=== PATIENT | male | born 1990 | race Caucasian/White ===

== ENCOUNTER 2018-12-26 10:06 | Emergency (ER) | payer MEDICAID ==
[2018-12-26] MEDS: Lidocaine 1% 10 ML MDV INJECT ONE (11:30)
--- NOTE | 2018-12-26 13:37 | EDM.PDOC ---
ED HPI GENERAL MEDICAL PROBLEM - General Chief Complaint: Laceration Stated Complaint: injury to arm, fell through window at home Time Seen by Provider: 12/26/18 10:45 Source of Information: Reports: Patient, Family, RN History Limitations: Reports: No Limitations - History of Present Illness INITIAL COMMENTS - FREE TEXT/NARRATIVE: 28 yo male presents to ER with laceration to right arm, shoe got caught at home and he fell through the trailer house window and has a couple lacerations. 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 Treatments TRAINING ANALYST: Reports: Dressing(s) Other Treatments TRAINING ANALYST: shirt tourniquet - Related Data Allergies Allergy/AdvReac Type Severity Reaction Status Date / Time No Known Allergies Allergy Verified 12/26/18 10:59 Home Meds: Home Meds Albuterol/Ipratropium [DuoNeb 3.0-0.5 MG/3 ML] 3 mg IH BEDTIME 12/26/18 [History ] Budesonide/Formoterol Fumarate [Symbicort 160-4.5 Mcg Inhaler] 1 prepack IH BID 12/26/18 [History] Cholecalciferol (Vitamin D3) [Vitamin D] 5,000 unit PO BTNUNITS 12/26/18 [ History] Dextroamphetamine/Amphetamine [Adderall 20 mg Tablet] 20 mg ACDINNER 12/26/18 [ History] Gabapentin [Neurontin] 400 mg PO TID 12/26/18 [History] Ibuprofen 800 mg PO PRN 12/26/18 [History] [place] Carbonate 300 mg PO BEDTIME 12/26/18 [History] Mirtazapine [Remeron] 30 mg PO BEDTIME 12/26/18 [History] Polyethylene Glycol 3350 [MiraLAX] 17 gm DAILY 12/26/18 [History] cloNIDine [Catapres] 0.1 mg PO BEDTIME 12/26/18 [History] ED ROS GENERAL - Review of Systems Review Of Systems: See Below Constitutional: Reports: No Symptoms HEENT: Reports: No Symptoms Respiratory: Reports: No Symptoms Cardiovascular: Reports: No Symptoms Skin: Reports: Other (lacerations to forearm) ED EXAM, GENERAL - Physical Exam Exam: See Below Exam Limited By: No Limitations General Appearance: Alert, No Apparent Distress Nose: Normal Inspection Throat/Mouth: Normal Voice, No Airway Compromise Head: Atraumatic, Normocephalic Neck: Normal Inspection, Non-Tender, Full Range of Motion Respiratory/Chest: No Respiratory Distress, Lungs Clear Cardiovascular: Normal Peripheral Pulses, No Edema Extremities: Normal Inspection, Normal Range of Motion, Normal Capillary Refill Neurological: Alert, Oriented, Normal Cognition Skin Exam: Warm, Dry, Wound/Incision (2 lacerations to right forearm on posterior side of arm. No foreign object noted and moving fingers and hand without difficulty.) ED GENERAL MEDICAL PROCEDURES - Laceration/Wound Repair Right Upper Anterior Arm Lac/wound length in cm: 2.5 (2 lacerations) Appearance: Superficial, Linear Distal NVT: Neuro & Vascular Intact, No Tendon Injury Anesthetic Type: Local Local Anesthesia - Lidocaine (Xylocaine): 1% Plain Local Anesthetic Volume: 4cc Skin Prep: Chlorhexidine (Hibiciens), Saline, Sterile Drape Exploration/Debridement/Repair: Wound Explored Closed with: Sutures Suture Size: 4-0 Suture Type: Nylon, Interrupted, Simple Sterile Dressing Applied: Nurse Tetanus Status Addressed: Yes Complications: No Course - Vital Signs Last Recorded V/S: Last Vital Signs Temp 97.7 F 12/26/18 10:30 Pulse Resp BP 144/93 H 12/26/18 10:30 Pulse Ox Departure - Departure Time of Disposition: 12:00 Disposition: Home, Self-Care 01 Preliminary Cause of *Q: Sepsis & Multi System Organ Failure Clinical Impression: Laceration - Discharge Information *PRESCRIPTION DRUG MONITORING PROGRAM REVIEWED*: Not Applicable *COPY OF PRESCRIPTION DRUG MONITORING REPORT IN PATIENT RAMIREZ: Not Applicable Instructions: Laceration Care, Adult, [id number] Referrals: PCP,None [Primary Care Provider] - Forms: ED Department Discharge Care Plan Goals: Follow up in the clinic in 10 days for suture removal, watch for signs of infection, return with any questions or concerns. - Assessment/Plan Plan: RTC in 10 days for suture removal Keep dry and dressing intact for 48 hour. Do not soak area. Apply bandaid to area as needed. Keep area clean and dry.
== END 2018-12-26 12:00 | disposition home or self-care (01) ==
LOC: LB.ED 10:06
DX: S51.811A Laceration without foreign body of right forearm, initial encounter (principal); W13.4XXA Fall from, out of or through window, initial encounter; Y92.009 Unspecified place in unspecified non-institutional (private) residence as the place of occurrence of the external cause
CPT/HCPCS: 12001; 99282; J2001